=== PATIENT | male | born 1960 | race Caucasian/White ===

== ENCOUNTER 2019-02-05 12:43 | Emergency (ER) | payer MEDICARE, MEDICAID ==
[2019-02-05 13:22] LABS: ADD MAN DIFF? NO
[2019-02-05 13:28] LABS: BASOPHIL # 0.1 10^3/ul (0.0-0.1); BASOPHILS % 0.3 % (0.0-2.0); EOSINOPHILS % 0.1 % (0.0-7.0); HEMATOCRIT 45.8 % (42.0-52.0); LYMPHOCYTES # 1.1 10^3/ul (0.8-2.9); LYMPHOCYTES % 5.8 % (15.0-51.0); MEAN CORPUSCULAR HGB CONC 32.8 g/dl (32.0-37.0); MEAN CORPUSCULAR VOLUME 88.6 fl (82.0-101.0); MEAN PLATELET VOLUME 10.7 fl (7.4-10.4); MONOCYTE # 1.4 10^3/ul (0.3-0.9); MONOCYTES % 7.1 % (0.0-11.0); NEUTROPHIL # 16.7 10^3/ul (1.6-7.5); NEUTROPHILS % 85.9 % (39.0-77.0); PLATELET COUNT 182 10^3/UL (140-415); RED BLOOD COUNT 5.17 10^6/ul (4.70-6.10); RED CELL DISTRIBUTION WIDTH 12.9 % (11.5-14.5)
[2019-02-05 13:28] LABS: WHITE BLOOD COUNT 19.4 10^3/ul (4.8-10.8)
[2019-02-05] MEDS: CEFEPIME 2GM/50 ML (PMX) 50 ML IVPB (13:32)
[2019-02-05] MEDS: SODIUM CHLORIDE 0.9% 1L BAG IV* (13:33)
[2019-02-05 13:46] LABS: ALANINE AMINOTRANSFERASE 38 IU/L (13-69); ALBUMIN/GLOBULIN RATIO 1.21; ALKALINE PHOSPHATASE 88 IU/L (42-121); ANION GAP 11 (5-13); ASPARTATE AMINO TRANSFERASE 31 IU/L (15-46); BILIRUBIN,INDIRECT 0.7 mg/dl (0-1.1); BILIRUBIN,TOTAL 0.7 mg/dl (0.2-1.3); BLOOD UREA NITROGEN 11 mg/dl (7-20); CARBON DIOXIDE 25 mmol/L (21-31); CHLORIDE 103 mmol/L (97-110); CREATININE 0.98 mg/dl (0.61-1.24); Estimated GFR > 60 mL/min (>60); GLUCOSE 137 mg/dl (70-220); POTASSIUM 4.8 mmol/L (3.5-5.1); SODIUM 139 mmol/L (135-144); TOTAL PROTEIN 7.3 g/dl (6.1-8.1)
[2019-02-05 13:47] LABS: INR 0.92; PARTIAL THROMBOPLASTIN TIME 26.2 Sec (23.0-35.0); PROTIME 12.5 Sec (11.9-14.9)
[2019-02-05 13:57] LABS: TROPONIN-I < 0.012 ng/ml (0.000-0.120)
[2019-02-05] MEDS: ACETAMINOPHEN 500 MG TAB PO (14:01)
[2019-02-05] MEDS: IOHEXOL 300MG/ML 150 ML BTL (14:02)
[2019-02-05] MEDS: SOD CHLORIDE 0.9% 100 ML (14:03)
[2019-02-05] MEDS: VANCOMYCIN 1 GM (PMX) 250 ML IVPB (14:52)
[2019-02-05 15:25] LABS: ADD UMIC YES; UR ASCORBIC ACID NEGATIVE (NEGATIVE); UR BILIRUBIN (Dip) NEGATIVE (NEGATIVE); UR BLOOD (Dip) NEGATIVE (NEGATIVE); UR CLARITY CLEAR (CLEAR); UR COLOR YELLOW (YELLOW); UR GLUCOSE (Dip) NEGATIVE (NEGATIVE); UR KETONES (Dip) NEGATIVE (NEGATIVE); UR LEUKOCYTE ESTERASE (Dip) TRACE Leu/ul (NEGATIVE); UR NITRITE (Dip) NEGATIVE (NEGATIVE); UR RBC 1 /HPF (0-5); UR SPECIFIC GRAVITY (Dip) 1.011 (1.003-1.030); UR TOTAL PROTEIN (Dip) NEGATIVE (NEGATIVE); UR UROBILINOGEN (Dip) NEGATIVE (NEGATIVE); UR WBC 23 /HPF (0-5)
[2019-02-05] MEDS: IBUPROFEN 800 MG TAB PO (16:38)
== END 2019-02-05 17:42 | disposition home or self-care (01) ==
LOC: E/R 12:43
DX: A09 Infectious gastroenteritis and colitis, unspecified (principal); I10 Essential (primary) hypertension; K56.7 Ileus, unspecified; R10.9 Unspecified abdominal pain
CPT/HCPCS: 36415; 71045; 74177; 80053; 81001; 83605; 84484; 85025; 85610; 85730; 87040-91; 87086; 87400; 93005; 96361; 96365; 96366; 96367; 99285-25

== ENCOUNTER 2019-03-07 08:28 | Emergency (ER) | payer MEDICARE, MEDICAID ==
[2019-03-07] MEDS: ALPRAZOLAM 0.25 MG TAB PO (09:32)
[2019-03-07] MEDS: ONDANSETRON (ODT) 4 MG TAB ODT (09:37)
== END 2019-03-07 09:42 | disposition home or self-care (01) ==
LOC: FTE 08:28
DX: F41.9 Anxiety disorder, unspecified (principal); I10 Essential (primary) hypertension
CPT/HCPCS: 93005; 99283-25